=== PATIENT | male | born 1970 | race Caucasian/White ===

== ENCOUNTER 2018-06-23 10:50 | Emergency (ER) | payer OTHER ==
[~2018-06-23] VITALS: Ht 182.9 cm; Wt 71.9 kg
[2018-06-23 10:59] VITALS: BP 122/90
[2018-06-23] MEDS ORDERED: LIDOCAINE 2%, 20ML INFIL ONE (11:30)
[2018-06-23] MEDS ORDERED: DIPH,PERTUSS(ACELL),TET VAC/PF 0.5 ML IM-VACC ONE ×2 (11:30→12:01)
[2018-06-23] MEDS ORDERED: LIDOCAINE-MPF 1%, 2ML ONE ×2 (12:01→12:15)
[2018-06-23] MEDS ORDERED: CEFAZOLIN 1,000 MG IM ONE (12:30)
[2018-06-23] MEDS ORDERED: BACITRACIN ZINC OINT 500U/GM, 0.9 GM ONE (12:47)
[2018-06-23] MEDS ORDERED: CEFAZOLIN 1,000 MG ONE (13:01)
== END 2018-06-23 13:07 | disposition home or self-care (01) ==
LOC: ED 12:16
DX: S81.811A Laceration without foreign body, right lower leg, initial encounter (principal); W26.8XXA Contact with other sharp object(s), not elsewhere classified, initial encounter; Y93.89 Activity, other specified; Y92.098 Other place in other non-institutional residence as the place of occurrence of the external cause; Y99.8 Other external cause status
CPT/HCPCS: 12032; 73590; 90471; 90715; 96372; 99284; J0690